=== PATIENT | male | born 1950 | race African-American/Black ===

== ENCOUNTER → 2019-05-21 | Outpatient (CLI) | payer OTHER ==
[~2019-05-21] VITALS: Ht 175.3 cm; Wt 88.0 kg
[~2019-05-21] MED LIST: AMLODIPINE PO; ASPIR 8181 MG PO; CHOLESTEROL MEDICINE PO; DOXYCYCLINE 10100 M2 PO; FINASTERIDE PO; FLOMAX0.4 MG PO; HYOSCYAMINE0.125 MG PO; LIPITOR40 MG PO; METFORMIN HCL500 MG PO; NORVASC5 MG PO; PROSCAR 5MG TABL5 MG PO; VIAGRA100 MG PO
--- NOTE | 2019-05-22 16:06 | PATH ---
[facility] [address] [place] [address] PATHOLOGY RPT PROCEDURE Name: IRAIDAZECHARIAH Room #: [facility] MChrystal.#: [id number] Admission: 05/21/19 Date of : 46 Discharge: Report #: [id number] Path Case #: [id number] [facility] Accession Number: [id number] . 01 Material submitted: . PART A: colon - POLYP AT ASCENDING X2. Modifiers: ascending PART B: colon - POLYP AT SIGMOID COLON X9. Modifiers: sigmoid . 01 Clinical history: . Pre-op diagnosis: History of polyps, positive Cologuard Post-op diagnosis: Polyps . 02 Diagnosis: A. Polyp x2, ascending, endoscopic biopsy: - Multiple fragments showing inflammatory polyp associated with hyperplastic changes. - Negative for dysplasia. . B. Polyp, sigmoid colon, endoscopic biopsy: - Inflamed hyperplastic polyps. - Negative for dysplasia. . (IUV:whit; 05/22/2019) MBR 05/22/2019 1349 Local . 02 Electronically signed: . Debby Blanco MD, Pathologist NPI- [id number] . 01 Gross description: . A. The specimen is received in formalin, labeled "Zechariah Huertas, polyp at ascending colon". Received are four segments of pale rapp soft tissue ranging in size from 0.3 to 0.5 cm in maximum dimensions. The specimen is submitted entirely in cassette A1. . B. The specimen is received in formalin, labeled "Zechariah Huertas, polyp at sigmoid colon x9". Received are seven segments of pale rapp soft tissue ranging in size from 0.2 to 0.8 cm in maximum dimensions. The specimen is submitted entirely in cassette B1. Upon careful inspection and filtration, no additional tissue is found remaining within the container. (CAA; 05/21/2019) QAC/QAC 05/21/2019 1716 Local . 02 Pathologist provided ICD-10: K63.5 . 02 CPT . [place] [id number] PATHOLOGY RPT PROCEDURE Name: ZECHARIAH HUERTAS Room #: REG [facility]#: [id number] Admission: 05/21/19 Date of : 46 Discharge: Report #: [id number] Path Case #: [id number] Specimen Comment: A courtesy copy of this report has been sent to [phone] Specimen Comment: [id number] Specimen Comment: Report sent to / DR BEVERLY Performed at: [address], [place], [place] [id number] MD Chalino Monsivais MD Phone: [phone] Performed at: [address] [id number] MD Debby Blanco MD Phone: [phone]
== END | disposition home or self-care (01) ==
LOC: GI 08:44
DX: R19.5 Other fecal abnormalities (principal); K51.40 Inflammatory polyps of colon without complications; K57.30 Diverticulosis of large intestine without perforation or abscess without bleeding; K64.8 Other hemorrhoids; I10 Essential (primary) hypertension; E78.00 Pure hypercholesterolemia, unspecified; E11.9 Type 2 diabetes mellitus without complications; N40.0 Benign prostatic hyperplasia without lower urinary tract symptoms; Z86.010 Personal history of colon polyps; Z98.890 Other specified postprocedural states; Z79.899 Other long term (current) drug therapy; Z87.442 Personal history of urinary calculi
CPT/HCPCS: 62110; 62900